=== PATIENT | male | born 1945 | race Caucasian/White ===

== ENCOUNTER 2017-06-06 06:31 | Inpatient (IN) | payer OTHER, SELFPAY ==
[2017-05-24 12:36] LABS: ABSOLUTE BASOPHILS 0.1 thou/uL (0.0-0.2); ABSOLUTE EOSINOPHILS 0.1 thou/uL (0.0-0.7); ABSOLUTE LYMPHOCYTES 1.3 thou/uL (0.8-5.3); ABSOLUTE MONOCYTES 0.5 thou/uL (0.0-1.2); ABSOLUTE NEUTROPHILS 3.9 thou/uL (1.6-8.1); EOSINOPHILS 1.9 %; HEMATOCRIT 46.1 % (42.0-52.0); LYMPHOCYTES 22.4 %; MCH 31.3 pg (26.0-34.0); MCHC 34.7 g/dL (28.0-37.0); MCV 90.1 fL (80.0-100.0); MONOCYTES 8.9 %; MPV 9.6 fl. (7.2-11.1); NUCLEATED RBCS 0 /100WBC; PLATELET COUNT* 174 thou/uL (150-400); POLYS 65.8 %; RBC 5.11 mil/uL (4.50-6.00); RDW-CV 13.3 % (10.5-14.5); WBC 5.9 thou/uL (4.0-11.0)
[2017-05-24 12:45] LABS: PROTIME 9.9 Seconds (9.20-11.50)
[2017-05-24 12:48] LABS: CALCIUM 9.1 mg/dL (8.5-10.1); POTASSIUM 3.8 mmol/L (3.5-5.1); TOTAL BILIRUBIN 0.6 mg/dL (<0.1-1.0); TOTAL PROTEIN 7.6 g/dL (6.4-8.2)
[2017-05-24 13:41] LABS: ESR (SEDRATE) 6 mm/hr (0-20)
--- NOTE | 2017-05-24 15:22 | EKG ---
[place] [address] ELECTROCARDIOGRAM REPORT Name: NOEMI CARR Room: PRE IN [facility]#: [id number] Admission: Attend Phys: Cyril Hummel Discharge: Date of : 47 Report #: [id number] THIS REPORT FOR: //name// [facility] Test Date: 2017-05-24 Test Time: 12:39:27 Pat Name: NOEMI CARR Department: Room: Gender: M Cash Applications Specialist: : 1945 Requested By: Roque Connors Order Number: [id number] Reading MD: Shan Rosenthal Measurements Intervals [place] Rate: 65 P: 14 GA: 190 QRS: -27 QRSD: 163 T: 77 QT: 496 QTc: 516 Interpretive Statements Sinus rhythm Right bundle branch block LVH with IVCD and secondary repol abnrm Prolonged QT interval Compared to ECG 08/07/2012 09:42:37 Intraventricular conduction delay now present Early repolarization now present Prolonged QT interval now present Electronically Signed On 05-24-2017 15:22:31 GAS METER MECHANIC by Shan Rosenthal [email or web address] <ELECTRONICALLY SIGNED> By: Shan Rosenthal MD, FAC 05/24/17 1522 1239 1239 Shan Rosenthal MD, [facility] /EPI
[2017-05-25 02:08] LABS: GLYCOHEMOGLOBIN (HGB A1C) 6.2 % (4.8-5.6)
[~2017-06-06] VITALS: Ht 177.8 cm; Wt 100.0 kg
[~2017-06-06 06:31] MED LIST: ADULT LOW DOSE81 MG PO; ALTACE5 M1 PO; BACTRIM DS TAB1 EACH PO; CRESTOR10 MG PO; CRESTOR40 MG PO; DAYPRO600 MG PO; GLUCOPHAGE XR750 MG PO; HYDROCODON-ACE1 EAC5 PO; LOPRESSOR 50 MG50 M1 PO; LOSARTAN-HCTZ1 EAC1 PO; MEDROLDOSEPACK PO; MICROZIDE12.5 MG PO; NEURONTIN 300300 M1 PO; PEPCID40 MG PO; PREDNISONE 10 M10 MG PO; ROXICODONE5 M1 PO; XARELTO10 M1 PO
[2017-06-06 10:27] VITALS: BP 145/99
[2017-06-06 16:56] VITALS: BP 146/80
[2017-06-06 20:20] VITALS: BP 161/93
[2017-06-06 23:49] VITALS: BP 142/85
[2017-06-07 04:36] VITALS: BP 174/83
[2017-06-07 05:02] LABS: HEMATOCRIT 41.4 % (42.0-52.0); HEMOGLOBIN 14.3 gm/dL (14.0-18.0)
[2017-06-07 08:09] VITALS: BP 174/88
--- NOTE | 2017-06-07 14:47 | EKG ---
[place] [address] ELECTROCARDIOGRAM REPORT Name: NOEMI CARR Room: [address] ADM IN M.R.#: [id number] Admission: 06/06/17 Attend Phys: Cyril Hummel Discharge: Date of : 47 Report #: [id number] THIS REPORT FOR: //name// [facility] Test Date: 2017-06-07 Test Time: 08:29:52 Pat Name: NOEMI CARR Department: Room: [address] Gender: M [facility] Assistant: : 1945 Requested By: Cee Deluna Order Number: [id number] Michael MD: Phillip Hicks Measurements Intervals [place] Rate: 94 P: 20 NE: 199 QRS: -35 QRSD: 138 T: 6 QT: 423 QTc: 530 Interpretive Statements Sinus rhythm Right bundle branch block Left ventricular hypertrophy, possible Prolonged QT interval Compared to ECG 05/24/2017 12:39:27 Early repolarization no longer present Electronically Signed On 06-07-2017 14:47:08 CDT by Phillip Hicks [email or web address] <ELECTRONICALLY SIGNED> By: Phillip Hicks MD, [facility] 06/07/17 1447 0829 0829 Phillip Hicks MD, [facility] /EPI
[2017-06-07 16:00] VITALS: BP 149/80
[2017-06-07 20:00] VITALS: BP 147/75
[2017-06-08 00:22] VITALS: BP 132/66
[2017-06-08 04:58] LABS: HEMATOCRIT 39.2 % (42.0-52.0); HEMOGLOBIN 13.4 gm/dL (14.0-18.0); MCHC 34.3 g/dL (28.0-37.0); MCV 90.5 fL (80.0-100.0); MPV 10.4 fl. (7.2-11.1); RBC 4.33 mil/uL (4.50-6.00); RDW-CV 13.5 % (10.5-14.5)
[2017-06-08 05:25] LABS: CALCIUM 8.4 mg/dL (8.5-10.1); CREATININE 1.1 mg/dL (0.6-1.3); POTASSIUM 3.8 mmol/L (3.5-5.1)
[2017-06-08 05:32] VITALS: BP 141/63
[2017-06-08 07:54] VITALS: BP 121/91
[2017-06-08 11:07] VITALS: BP 121/91
[2017-06-08 16:50] VITALS: BP 121/87
[2017-06-08 22:13] LABS: ANION GAP 7 mmol/L (7-16); BUN 17 mg/dL (7-18); CALCIUM 8.7 mg/dL (8.5-10.1); CHLORIDE 97 mmol/L (98-107); CO2 31 mmol/L (21-32); CREATININE 1.3 mg/dL (0.6-1.3); GLUCOSE 181 mg/dL (70-99); POTASSIUM 3.3 mmol/L (3.5-5.1); SODIUM 135 mmol/L (136-145)
[2017-06-08 22:17] LABS: ALKALINE PHOSPHATASE 68 U/L (46-116); SGOT 16 U/L (15-37); SGPT 20 U/L (30-65); TOTAL BILIRUBIN 0.7 mg/dL (<0.1-1.0); TOTAL PROTEIN 6.9 g/dL (6.4-8.2); TROPONIN-I LEVEL <0.06 ng/mL (<0.06)
[2017-06-08 23:20] VITALS: BP 130/64
[2017-06-09 02:15] VITALS: BP 133/61
[2017-06-09 04:00] VITALS: BP 100/66
[2017-06-09 09:21] VITALS: BP 133/55
[2017-06-09 12:16] VITALS: BP 116/72
--- NOTE | 2017-06-09 12:20 | S ---
[address] [address] SURGICAL PATH RPT PROCEDURE Name: NOEMI CARR Room: [address] IN ..#: [id number] Admission: 06/06/17 Date of : 47 Discharge: Report #: [id number] Path Case #: [id number] PATHOLOGY REPORT COLLECTION DATE: 06/06/2017 RECEIVED DATE: 06/07/2017 SUBMITTING PHYS: Dr. Roque Connors OTHER PHYS: Dr. Rogleio Galvez SPECIMEN(S) RECEIVED: A.Bone left knee * * * * * * * * * * * * FINAL DIAGNOSIS: Bone and soft tissue "bone left knee, joint resection": - Degeneration of cartilage consistent with degenerative joint disease. (SHA:carmen; 06/09/2017) PATHOLOGIST: Ministerio Bashir M.D. REPORT ELECTRONICALLY SIGNED BY: Ministerio Bashir M.D. DATE/TIME: 06/09/2017 12:19 * * * * * * * * * * * * GROSS PATHOLOGY: Received in formalin labeled "Noemi Carr, bone left knee," are multiple segments of bone, including tibial plateau, measuring 14.4 x 13.7 x 1.9 cm in aggregate dimensions with scant attached soft tissue; meniscus is present. The specimen shows focal eburnation of the articular surfaces. Security Vehicle Patrol Officer sections of bone and soft tissue are submitted in cassette A1, following decalcification. (DAC; 06/08/2017) CLINICAL HISTORY: Left knee degenerative joint disease INITIAL CPT CODE(S): A; 38330, 91643 Professional services performed by [facility] at [facility], [address] [place], [place] [address]Sh[place], [place] [address]. Technical services performed by [facility] at [address] [place] [address], [facility] [address], [place] [address]. [place] [address] [address] [facility] [place] [address] SURGICAL PATH RPT PROCEDURE Name: NOEMI CARR Room: [address] IN ..#: [id number] Admission: 06/06/17 Date of : 47 Discharge: Report #: [id number] Path Case #: [id number] [facility] [address] [address] PHONE: [phone] DIRECTOR: Caleb Dominguez M.D. * * * END OF REPORT * * *
--- NOTE | 2017-06-09 15:04 | 2DMMODE ---
[place] [address] 2 D/M-MODE ECHOCARDIOGRAM Name: NOEMI CARR Room: [address] IN [facility]#: [id number] Admission: 06/06/17 Attend Phys: Rogelio Rizvi Discharge: Date of : 47 Date of Service: 06/09/17 1503 Report #: [id number] THIS REPORT FOR: //name// APPROVED REPORT Study performed: 06/09/2017 10:55:51 EXAM: Comprehensive 2D, Doppler, and color-flow Echocardiogram Patient Location: In-Patient Room #: 230 Status: routine BSA: 2.22 HR: 74 bpm BP: 133/55 mmHg Rhythm: NSR Other Information Study Quality: Good Indications Murmur 2D Dimensions LVEF(%): 65.26 (>50%) IVSd: 14.01 (7-11mm) LVOT Diam: 22.30 (18-24mm) LVDd: 46.06 mm PWd: 10.18 (7-11mm) Ascending Ao: 35.36 (22-36mm) LVDs: 29.62 (25-40mm) Aortic Root: 35.10 mm Bo's LVEF: 65.26 % Volumes Left Atrial Volume (Systole) LA ESV Index: 27.40 mL/m2 Aortic Valve AoV Peak Jovanny.: 1.96 m/s AO Peak Gr.: 15.30 mmHg LVOT Max P.50 mmHg AO Mean Gr.: 9.24 mmHg LVOT Mean P.23 mmHg LVOT Max V: 1.37 m/s AO V2 VTI: 39.76 cm LVOT Mean V: 0.96 m/s KULDIP (VTI): 2.49 cm2 LVOT V1 VTI: 25.38 cm Mitral Valve E/A Ratio: 0.87 [place] [address] 2 D/M-MODE ECHOCARDIOGRAM Name: NOEMI CARR Room: [address] IN ..#: [id number] Admission: 06/06/17 Attend Phys: Rogelio Rizvi Discharge: Date of : 47 Date of Service: 06/09/17 1503 Report #: [id number] MV Decel. Time: 269.35 ms MV E Max Jovanny.: 0.88 m/s MV PHT: 78.11 ms MVA (PHT): 2.82 cm2 TDI E/Lateral E': 6.29 E/Medial E': 6.77 Medial E' Jovanny.: 0.13 m/s Lateral E' Jovanny.: 0.14 m/s Pulmonary Valve PV Peak Jovanny.: 1.48 m/s PV Peak Gr.: 8.78 mmHg Tricuspid Valve TR Peak Gr.: 32.16 mmHg RVSP: 37.00 mmHg Left Ventricle The left ventricle is normal size. There is normal LV segmental wall motion. There is normal left ventricular wall thickness. Left ventricular systolic function is normal. The left ventricular ejection fraction is within the normal range. LVEF is 60-65%. Grade I - abnormal relaxation pattern. Right Ventricle The right ventricle is normal size. The right ventricular systolic function is normal. Atria The left atrium size is normal. The right atrium size is normal. Aortic Valve The aortic valve is normal in structure. No aortic regurgitation is present. There is no aortic valvular stenosis. Mitral Valve The mitral valve is normal in structure. Mild mitral regurgitation. No evidence of mitral valve stenosis. Tricuspid Valve The tricuspid valve is normal in structure. Trace tricuspid regurgitation. The RVSP is 35-40 mmHg. Pulmonic Valve The pulmonary valve is normal in structure. There is no pulmonic [place] [address] 2 D/M-MODE ECHOCARDIOGRAM Name: NOEMI CARR Room: [address] IN ..#: [id number] Admission: 06/06/17 Attend Phys: Rogelio Rizvi Discharge: Date of : 47 Date of Service: 06/09/17 1503 Report #: [id number] Great Vessels The aortic root is normal in size. IVC is normal in size and collapses with >50% inspiration Pericardium There is no pericardial effusion. <Conclusion> The left ventricle is normal size. There is normal left ventricular wall thickness. Left ventricular systolic function is normal. The left ventricular ejection fraction is within the normal range. LVEF is 60-65%. Grade I - abnormal relaxation pattern. The right ventricle is normal size. The left atrium size is normal. The aortic valve is normal in structure. The mitral valve is normal in structure. Mild mitral regurgitation. The tricuspid valve is normal in structure. Trace tricuspid regurgitation. The RVSP is 35-40 mmHg. IVC is normal in size and collapses with >50% inspiration There is no pericardial effusion. There is normal LV segmental wall motion. <ELECTRONICALLY SIGNED> By: Obdulio Nolan MD, FACC 06/09/17 1503 1503 1503 Obdulio Nolan MD, FACC /INF
--- NOTE | 2017-06-09 15:19 | EKG ---
[place] [address] ELECTROCARDIOGRAM REPORT Name: NOEMI CARR Room: [address] ADM IN M.R.#: [id number] Admission: 06/06/17 Attend Phys: Cyril Hummel Discharge: Date of : 47 Report #: [id number] THIS REPORT FOR: //name// [facility] Test Date: 2017-06-08 Test Time: 21:25:08 Pat Name: NOEMI CARR Department: Room: [facility] Gender: M Surface Boss: RADHABANNER : 1945 Requested By: Rogelio Rizvi Order Number: [id number] Michael MD: Obdulio Nolan Measurements Intervals [place] Rate: 117 P: VA: QRS: -37 QRSD: 133 T: 28 QT: 353 QTc: 493 Interpretive Statements Sinus rhythm with pac's Right bundle branch block Left ventricular hypertrophy Compared to ECG 06/07/2017 08:29:52 Prolonged QT interval no longer present Electronically Signed On 06-09-2017 15:18:57 CDT by Obdulio Nolan [email or web address] <ELECTRONICALLY SIGNED> By: Obdulio Nolan MD, [facility] 06/09/17 1518 24 24 Obdulio Nolan MD, [facility] /EPI
--- NOTE | 2017-06-09 15:20 | EKG ---
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: GREG : 1945 Requested By: Rogelio Rizvi Order Number: [id number] Reading MD: Obdulio Nolan Measurements Intervals [place] Rate: 100 P: 0 DE: 62 QRS: -41 QRSD: 139 T: 39 QT: 367 QTc: 474 Interpretive Statements Sinus tachycardia Paired pac's RBBB and LAFB Left ventricular hypertrophy Compared to ECG 06/07/2017 08:29:52 Left anterior fascicular block now present Prolonged QT interval no longer present Electronically Signed On 06-09-2017 15:19:59 CDT by Obdulio Nolan [email or web address] <ELECTRONICALLY SIGNED> By: Obdulio Nolan MD, FAC 06/09/17 1519 26 26 Obdulio Nolan MD, [facility] /EPI
[2017-06-09 15:45] VITALS: BP 116/63
[2017-06-09 19:55] VITALS: BP 144/67
[2017-06-10] VITALS: BP 111/44
[2017-06-10 04:00] VITALS: BP 118/52
[2017-06-10 05:31] LABS: HEMATOCRIT 33.1 % (42.0-52.0); MCH 31.5 pg (26.0-34.0); MCHC 34.4 g/dL (28.0-37.0); MCV 91.4 fL (80.0-100.0); MPV 9.6 fl. (7.2-11.1); NUCLEATED RBCS 0 /100WBC; PLATELET COUNT* 152 thou/uL (150-400); RBC 3.62 mil/uL (4.50-6.00); RDW-CV 13.6 % (10.5-14.5); WBC 7.7 thou/uL (4.0-11.0)
[2017-06-10 05:39] LABS: HEMOGLOBIN 11.4 gm/dL (14.0-18.0)
[2017-06-10 06:12] LABS: ALBUMIN 2.7 g/dL (3.4-5.0); CALCIUM 8.2 mg/dL (8.5-10.1); POTASSIUM 3.3 mmol/L (3.5-5.1); TOTAL BILIRUBIN 0.8 mg/dL (<0.1-1.0); TOTAL PROTEIN 5.8 g/dL (6.4-8.2)
[2017-06-10 07:24] LABS: ABSOLUTE EOSINOPHILS 0.2 thou/uL (0.0-0.7); ABSOLUTE LYMPHOCYTES 1.2 thou/uL (0.8-5.3); ABSOLUTE MONOCYTES 0.6 thou/uL (0.0-1.2); ABSOLUTE NEUTROPHILS 5.7 thou/uL (1.6-8.1); ANISOCYTOSIS 1+; PLATELET ESTIMATE ADEQUATE; POIKILOCYTOSIS 1+
--- NOTE | 2017-06-10 07:38 | OP ---
[address] [address] OPERATIVE REPORT Name: NOEMI CARR Room: [address] IN .R#: [id number] Admission: 06/06/17 Attend Phys: Cyril Hummel Discharge: Date of : 47 Report #: [id number] THIS REPORT FOR: //name// CC: Basim Rizvi DICTATED BY: Cesario Botello DATE OF SERVICE: 06/06/2017 PREOPERATIVE DIAGNOSIS: Degenerative joint disease, left knee. POSTOPERATIVE DIAGNOSIS: Degenerative joint disease, left knee. PROCEDURE: Left total knee arthroplasty utilizing Louann Persona. IMPLANTS: A. A size 8 cruciate retained femoral component. B. A size G tibial baseplate. C. A 35 mm round patellar button. D. A 10 mm thickness medial congruent polyethylene spacer. E. Two bags of Biomet bone cement. SURGEON: Roque Connors DO. MARKETING ACCOUNT MANAGER: Cesario Botello DO. SECOND ROLL HAND: Hira Quiroz DO. ANESTHESIA: General and regional. ESTIMATED BLOOD LOSS: 75 mL. TOURNIQUET: 38 minutes, 290 mmHg. ANTIBIOTICS: 2 grams Ancef. SPECIMENS: None. DRAINS: None. COMPLICATIONS: None apparent. CONDITION: Stable, transferred to PACU. [address] [address] OPERATIVE REPORT Name: NOEMI CARR Room: [address] IN [facility]#: [id number] Admission: 06/06/17 Attend Phys: Cyril Hummel Discharge: Date of : 47 Report #: [id number] DISPOSITION: PACU to Med/Surg. 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 He has failed conservative treatment for degenerative joint disease of the left knee. He has elected for left total knee arthroplasty. We discussed the procedure to be performed in great detail including but not limited to the risks, benefits, potential complications, and alternatives including but not limited to infection, blood loss, damage to surrounding tissue, damage to blood vessels and nerves, continued pain, worsening pain, numbness, tingling, weakness, paralysis, loss of function, persistent limp instability, dislocation, hardware loosening, hardware failure, intraoperative fracture, postoperative fracture, need for further surgery, complications with anesthesia, thrombus, as well as other imponderables and he wishes to proceed. DESCRIPTION OF PROCEDURE: After written consent was obtained, the patient was transferred to the operative suite and placed in the supine position on the operative table. Anesthesia was induced via the anesthesia team. A well-padded pneumatic tourniquet was placed on the left thigh. The left lower extremity was sterilely prepped and draped with Hibiclens and ChloraPrep x 2. Timeout was performed. The correct patient, surgical site, procedure to be performed, antibiotics and surgeon were confirmed. Marking pen used to david our correct location of a direct midline incision. Incision was made with a 10 blade knife followed by dissection down to the superficial tissues. A new 10 blade knife was used to make a medial parapatellar tendon splitting arthrotomy. The patella was everted. Femoral drill used to ream the femoral canal followed by insertion of intramedullary guide into the femur. The distal femoral cutting block was pinned in place. The appropriate amount of resection was measured and the distal femoral cut was made in the usual fashion. Extramedullary tibial guide was then placed on the proximal tibia. It was centered down the medial third of the tibial tubercle down the center of the tibial crest down the center of the talus down the second metatarsal and the appropriate amount of posterior slope 10 mm was measured off the high lateral side. The pin was pinned in place and raised 2 mm. Proximal tibial cut was made in the usual fashion. The residual bone was removed. Extramedullary tibial guide was removed. A distal femoral guide was inserted in the appropriate amount of external rotation on the distal femur. It was sized to be a size 8. The 4-in-1 cutting block was impacted and pinned in place. The anterior, posterior and chamfer cuts were made in the usual fashion. All residual bone was removed. Great care taken to protect and identify all blood vessels, nerves and ligaments and structures in the field during the bony cuts for the procedure. The menisci were excised. The proximal tibia was sized to be the above size. The trial was pinned in place. Distal femoral trial was impacted and pinned in place. Trial spacer was inserted. Knee was taken throughout range of motion, flexion and extension gaps and found to be symmetric and stable to varus and valgus stress testing, stable throughout range of motion, full extension was achieved. A patellar reamer was then used [address] [address] OPERATIVE REPORT Name: NOEMI CARR Room: [address] IN M.R.#: [id number] Admission: 06/06/17 Attend Phys: Rogelio MandeepCyril Ramirez Discharge: Date of : 47 Report #: [id number] to ream the patella followed by sizing to the above-mentioned size. A trial was inserted and an excellent patellar tracking was noted. The trial patellar spacer and femur were all removed and the proximal tibia was prepared with reamer and keel punch in the usual fashion. The trial tibial baseplate was removed. The posterior capsular block was performed. The bone ends were thoroughly irrigated in the usual fashion with pulse lavage. The above-mentioned components were cemented in place with the 2 bags of cement mentioned above. All residual cement was removed. The trial space was again inserted with same amount of stability as well as symmetric flexion and extension gaps were noted and stable throughout range of motion. Flexion and extension gaps were found to be symmetric, stable to varus and valgus stress testing. The final 10 mm polyethylene spacer medial congruent was then inserted and impacted into place. It seated appropriately. The wound was again thoroughly irrigated before and after final polyethylene spacer insertion. The tourniquet was taken down. Adequate hemostasis was achieved. The knee was placed in 90 degrees of flexion. Vancomycin powder was sprinkled in the wound. The capsular layer was closed with a 1 Vicryl suture in [id number] interrupted fashion followed by running Quill suture. Next, the subcutaneous tissues were thoroughly irrigated with pulse lavage. The subcutaneous tissue was closed with a 2-0 Monocryl suture in interrupted buried knot technique followed by skin closure with 3-0 Stratafix suture in running fashion followed by Dermabond skin glue. Mepilex dressing followed by SAMSON was used as sterile dressing. Anesthesia was reversed by the anesthesia team. The patient was transferred back to the transfer cart and transferred to the postanesthesia care unit in stable condition. The patient appeared to tolerate this procedure well. There were no obvious complications apparent. Needle and sponge counts correct per the operating room team. DISPOSITION: Weightbear as tolerated, left lower extremity. Discharged to the floor when stable per anesthesia and he be admitted to Medicine. <ELECTRONICALLY SIGNED> By: Juliano Blanco DO 06/10/17 0738 1412 1435Roque Connors DO /nt
[2017-06-10 14:06] VITALS: BP 140/84
[2017-06-10 16:00] VITALS: BP 145/86
[2017-06-10 16:46] VITALS: BP 126/64
--- NOTE | 2017-06-10 18:11 | EKG ---
[place] [address] ELECTROCARDIOGRAM REPORT Name: NOEMI CARR Room: [address] ADM IN M.R.#: [id number] Admission: 06/06/17 Attend Phys: Cyril Hummel Discharge: Date of : 47 Report #: [id number] THIS REPORT FOR: //name// [facility] Test Date: 2017-06-10 Test Time: 09:31:40 Pat Name: NOEMI CARR Department: Room: [address] Gender: M Fish Flipper: EMETERIO : 1945 Requested By: Lalo Chowdhury Order Number: [id number] Michael MD: Phillip Hicks Measurements Intervals [place] Rate: 89 P: 15 RI: 157 QRS: -34 QRSD: 141 T: 46 QT: 390 QTc: 475 Interpretive Statements Sinus rhythm Multiple premature complexes, vent & supraven Right bundle branch block LVH with IVCD and secondary repol abnrm Compared to ECG 06/08/2017 21:27:23 Intraventricular conduction delay now present Early repolarization now present Sinus tachycardia no longer present Left anterior fascicular block no longer present Electronically Signed On 06-10-2017 18:11:27 CDT by Phillip Hicks [email or web address] <ELECTRONICALLY SIGNED> By: Phillip Hicks MD, FACC 06/10/17 1811 0 0 Phillip Hicks MD, FAC /EPI
[2017-06-10 20:00] VITALS: BP 135/75
[2017-06-11 00:12] VITALS: BP 130/79
[2017-06-11 03:49] VITALS: BP 136/84
[2017-06-11 08:00] VITALS: BP 147/77
[2017-06-11 12:00] VITALS: BP 129/57
[2017-06-11 16:00] VITALS: BP 153/71
[2017-06-11 20:00] VITALS: BP 139/66
[2017-06-12 00:12] VITALS: BP 123/63
[2017-06-12 04:00] VITALS: BP 136/68
[2017-06-12 08:00] VITALS: BP 132/76
[2017-06-12 10:21] VITALS: BP 132/76
[2017-06-12] MEDS ORDERED: COLCHICINE0.6 MG PO (10:39)
[2017-06-12] MEDS ORDERED: ASPIRIN325 PO (10:39)
[2017-06-12] MEDS ORDERED: LOPRESSOR25 PO (10:39)
[2017-06-12] MEDS ORDERED: COLACE100 MG PO (10:39)
[2017-06-12] MEDS ORDERED: OXYCONTIN10 M1 PO (12:46)
== END 2017-06-12 14:29 | disposition home health service (06) | DRG 470 ==
LOC: M.PRE 06:31 → M.ORTHSURG 08:57 → M.TBA 08:57 → M.PRE 10:59 → M.ORTHSURG 15:47 → M.2W 06-08 22:04
PROVIDERS: Internal Medicine; Internal Medicine Cardiovascular Disease; Orthopaedic Surgery; ADMIT Internal Medicine
PROC: 0SRD0J9 Replacement of Left Knee Joint with Synthetic Substitute, Cemented, Open Approach (ICD-10-PCS; principal; 2017-06-06)
PROC: 3E0T3BZ Introduction of Anesthetic Agent into Peripheral Nerves and Plexi, Percutaneous Approach (ICD-10-PCS; 2017-06-06)
DX: M17.12 Unilateral primary osteoarthritis, left knee (principal); I47.2 Ventricular tachycardia; Z96.651 Presence of right artificial knee joint; I10 Essential (primary) hypertension; E11.9 Type 2 diabetes mellitus without complications; K59.00 Constipation, unspecified; M10.9 Gout, unspecified; Z88.2 Allergy status to sulfonamides; Z88.8 Allergy status to other drugs, medicaments and biological substances

== ENCOUNTER → 2017-09-07 | Outpatient (CLI) | payer OTHER, SELFPAY ==
[~2017-09-07] MED LIST changes: +ASPIRIN325 PO; +COLACE100 MG PO; +COLCHICINE0.6 MG PO; +LOPRESSOR25 PO; +OXYCONTIN10 M1 PO
== END ==
LOC: M.MRI 14:21
DX: M43.16 Spondylolisthesis, lumbar region (principal); M46.06 Spinal enthesopathy, lumbar region; M51.26 Other intervertebral disc displacement, lumbar region; M48.061 Spinal stenosis, lumbar region without neurogenic claudication